=== PATIENT | female | born 1995 | race American Indian/Alaskan Native ===

== ENCOUNTER 2017-02-19 16:30 | Emergency (ER) | payer SELFPAY ==
[2017-02-19] MEDS ORDERED: NORCO 7.5/325 PO ONE (19:35)
[2017-02-19] MEDS ORDERED: MARCAINE 0.5% INFILTRATI NR (20:00)
--- NOTE | 2017-02-19 20:17 | XRay Report ---
FINAL REPORT PROCEDURE: XR FOOT 3 RT TECHNIQUE: RIGHT foot radiographs, AP, lateral, and oblique views. CPT 88115 HISTORY: RIGHT FOOT INJURY COMPARISON: No prior studies are available for comparison. FINDINGS: Fracture (s) and/or Dislocation(s): None . Alignment: Normal . Joint space(s): Normal . Soft tissues: Normal . Bone mineralization: Normal . Foreign bodies: None . Calcaneal spurring: None . IMPRESSION: Normal Examination .
[2017-02-19] MEDS ORDERED: BOOSTRIX IM ONE (20:41)
[2017-02-19 21:23] VITALS: BP 122/74
== END 2017-02-19 21:25 | disposition home or self-care (01) ==
LOC: ED 16:30
DX: S91.311A Laceration without foreign body, right foot, initial encounter (principal); F12.10 Cannabis abuse, uncomplicated; W20.8XXA Other cause of strike by thrown, projected or falling object, initial encounter; Y93.9 Activity, unspecified; Y92.9 Unspecified place or not applicable; Y99.9 Unspecified external cause status
CPT/HCPCS: 90471; 90715; 99283